=== PATIENT | female | born 1950 | race Caucasian/White ===

== ENCOUNTER 2016-09-06 23:21 | Emergency (ER) | payer OTHER ==
[2016-09-07] MEDS ORDERED: Cephalexin CAP* 500 MG PO ONE (00:02)
[2016-09-07] MEDS ORDERED: hydrOXYzine HCL TAB* 25 MG PO ONE (00:03)
[2016-09-07] MEDS ORDERED: predniSONE TAB* 20 MG PO ONE (00:03)
--- NOTE | 2016-09-07 00:22 | ED ---
Skin Complaint - HPI Summary HPI Summary: Patient presents to ED 1x day s/p wasp sting to the right hand. She endorses swelling, redness and itching to the hand. She has had reactions before, but ice has always alleviated her symptoms. She states the symptoms have gotten worse despite ice packs to the hand. She notes to pain, but itching is worse. She has limited ROM d/t swelling. Denies elbow or forearm involvement. Fingers are swollen. Denies numbness or tingling. 5/10 pain, constant and localized to the right hand. - History of Current Complaint Chief Complaint: EDExtremityUpper Time Seen by Provider: 09/06/16 23:35 Stated Complaint: RT HAND SWOLLEN Hx Obtained From: Patient Onset/Duration: Started Days Ago Skin Exposure Onset/Duration: Days Ago Timing: Constant Onset Severity: Moderate Current Severity: Moderate Pain Intensity: 5 Pain Scale Used: 0-10 Numeric Skin Location: Discrete, Hand Character: Swelling, Pruritus, Pain, Hives, Redness Aggravating Symptom(s): Nothing Alleviating Symptom(s): Cold Associated Signs & Symptoms: Negative Related History: Insect Bite/Sting, Possible Reaction to: Insect - Allergy/Home Medications Allergies/Adverse Reactions: Allergies Allergy/AdvReac Type Severity Reaction Status Date / Time No Known Allergies Allergy Verified 09/06/16 23:50 PMH/Surg Hx/FS Hx/Imm Hx Previously Healthy: Yes - Cancer History Hx Chemotherapy: No Hx Radiation Therapy: No - Immunization History Hx Pertussis Vaccination: No Immunizations Up to Date: Unable to Obtain/Confirm Infectious Disease History: No Infectious Disease History: Denies: Traveled Outside the [place] in Last 30 Days - Social History Occupation: Employed Full-time Lives: With Family Alcohol Use: Rare Hx Substance Use: No Substance Use Type: Reports: None Hx Tobacco Use: No Smoking Status (MU): Never Smoked Tobacco Review of Systems Constitutional: Negative Eyes: Negative Cardiovascular: Negative Respiratory: Negative Positive: no symptoms reported, see HPI Positive: Arthralgia Positive: Other - hand swelling with erythema and warmth Neurological: Negative Psychological: Normal All Other Systems Reviewed And Are Negative: Yes Physical Exam Triage Information Reviewed: Yes Vital Signs On Initial Exam: Initial Vitals Temp Pulse Resp BP Pulse Ox 98.6 F 82 16 163/87 98 09/06/16 23:30 09/06/16 23:30 09/06/16 23:30 09/06/16 23:30 09/06/16 23:30 Vital Signs Reviewed: Yes Appearance: Positive: Well-Appearing, Well-Nourished Skin: Positive: Warm, Skin Color Reflects Adequate Perfusion, Other - hand swelling with erythema and warmth Head/Face: Positive: Normal Head/Face Inspection Eyes: Positive: Normal, EOMI, GABRIELA Neck: Positive: Supple, Nontender Respiratory/Lung Sounds: Positive: Breath Sounds Present Cardiovascular: Positive: Normal Musculoskeletal: Positive: Limited @ - right wrist ROM d/t swelling Neurological: Positive: Sensory/Motor Intact, Alert, Oriented to Person Place, Time, Speech Normal Psychiatric: Positive: Normal AVPU Assessment: Alert - Jennie Coma Scale Best Eye Response: 4 - Spontaneous Best Motor Response: 6 - Obeys Commands Best Verbal Response: 5 - Oriented Coma Scale Total: 15 Diagnostics - Vital Signs Vital Signs Temp Pulse Resp BP Pulse Ox 09/06/16 23:49 98.6 F 82 16 163/87 98 09/06/16 23:30 98.6 F 82 16 163/87 98 - Laboratory Lab Statement: Any lab studies that have been ordered have been reviewed, and results considered in the medical decision making process. Course/Dx - Course Course Of Treatment: Keflex, prednisone and hydroxyzine given to patient in ED. Rx sent. Likely wasp sting with localized allergic reaction, but d/t warmth and redness, will also treat for possible coexisting infection. Patient ok with plan and dc home. - Differential Diagnoses - Skin Complaint Differential Diagnoses: Allergic Reaction, Anaphylaxis, Angioedema, Drug Rash - Diagnoses Provider Diagnoses: Angioedema Discharge - Discharge Plan Condition: Stable Disposition: HOME Prescriptions: Cephalexin CAP* [Keflex CAP*] 500 mg PO QID #20 cap MDD 4 hydrOXYzine HCL TAB* [Atarax 25 MG TAB*] 25 mg PO QID PRN #8 tab PRN Reason: Itching predniSONE TAB* [Deltasone TAB*] 50 mg PO DAILY #4 tab MDD 1 Patient Education Materials: Angioedema (ED) Referrals: Jose Dunbar MD [Primary Care Provider] - Additional Instructions: Prednisone 50mg in the morning for 4 days Hydroxyzine for itching - up to 4 times daily Keflex four times daily for 5 days Benadryl 25m or 50mg at bedtime.
[2016-09-07 00:46] VITALS: BP 154/88
== END 2016-09-07 00:45 | disposition home or self-care (01) ==
LOC: ED 23:21
DX: T78.3XXA Angioneurotic edema, initial encounter (principal); W57.XXXA Bitten or stung by nonvenomous insect and other nonvenomous arthropods, initial encounter; Y93.9 Activity, unspecified; Y92.9 Unspecified place or not applicable
CPT/HCPCS: 99282; A9270-GY; J7512